=== PATIENT | male | born 1970 ===

== ENCOUNTER 2019-06-29 18:45 | Emergency (ER) | payer OTHER ==
[~2019-06-29] VITALS: Ht 170.2 cm; Wt 81.6 kg
[2019-06-29] MEDS ORDERED: PROZAC10 MG (19:05)
[2019-06-29] MEDS ORDERED: DEPAKOTE ER500 MG (19:06)
[2019-06-29] MEDS ORDERED: CLONAZEPAM0.5 M1 (19:06)
[2019-06-29] MEDS ORDERED: ZYPREXA2.5 MG (19:07)
[2019-06-29] MEDS ORDERED: LITHOBID300 M1 (19:07)
== END 2019-06-29 22:32 | disposition home or self-care (01) ==
LOC: ER 18:45
DX: K58.8 Other irritable bowel syndrome (principal)